=== PATIENT | female | born 1970 | race Caucasian/White ===

== ENCOUNTER → 2022-05-02 | Outpatient (CLI) | payer OTHER ==
[~2022-05-02] MED LIST: ALPRAZOLAM0.5 MG PO; IBUPROFEN600 MG PO; NAPROSYN500 MG PO; NORCO 5-325 TA1 EACH PO; PRINIVIL10 MG PO; STRATTERA40 MG PO; TENORMIN 25 MG25 MG PO; VIIBRYD10 MG PO; VITAMIN D250000 UNIT PO; ZOFRAN ODT 4 MG4 MG PO; [UNRECOGNIZED DRUG - REMARK] PO
== END ==
LOC: US 13:30
DX: R22.2 Localized swelling, mass and lump, trunk (principal)
CPT/HCPCS: 76604

== ENCOUNTER 2022-05-19 10:49 | Emergency (ER) | payer OTHER ==
[~2022-05-19 10:49] MED LIST changes: -K-TAB ER20 MEQ PO
[2022-05-19 11:39] LABS: HEMOGLOBIN 12.6 gm/dl (12.3-15.3); RED BLOOD COUNT 4.21 M/UL (4.00-5.10); WHITE BLOOD COUNT 5.6 K/UL (4.5-11.0)
[2022-05-19 12:01] LABS: BUN/CREATININE RATIO 14 (0-10)
[2022-05-19] MEDS ORDERED: K-TAB ER20 MEQ PO (12:46)
== END 2022-05-19 13:15 | disposition home or self-care (01) ==
LOC: ER1 10:49
PROVIDERS: Nurse Practitioner
DX: E87.6 Hypokalemia (principal); I10 Essential (primary) hypertension
CPT/HCPCS: 80053; 82550; 82553; 83874; 84484; 85025; 93005; 99283

== ENCOUNTER → 2022-05-19 | Outpatient (CLI) | payer OTHER ==
[~2022-05-19] MED LIST changes: +K-TAB ER20 MEQ PO
[2022-05-19 08:23] LABS: BUN/CREATININE RATIO 14 (0-10)
== END ==
LOC: CT 07:05
PROVIDERS: Physician Assistant
DX: R22.2 Localized swelling, mass and lump, trunk (principal)
CPT/HCPCS: 36415; 71270; 80048; Q9967